=== PATIENT | female | born 1980 | race Caucasian/White ===

== ENCOUNTER 2018-06-18 12:18 | Emergency (ER) | payer BC, OTHER ==
[2018-06-18] MEDS ORDERED: IBUPROFEN 800 MG TABLET PO ONE (13:06)
[2018-06-18 13:25] LABS: APPEARANCE,URINE SLIGHTLY-CLOUDY; BILIRUBIN,URINE NEGATIVE (NEGATIVE); COLOR,URINE AMBER; GLUCOSE, URINE NEGATIVE (NEGATIVE); KETONES,URINE TRACE mg/dL (NEGATIVE); LEUKOCYTE ESTERASE,URINE NEGATIVE (NEGATIVE); NITRITE,URINE NEGATIVE (NEGATIVE); PROTEIN,URINE 30 mg/dL (NEGATIVE); URINE SPECIFIC GRAVITY 1.025; UROBILINOGEN,URINE NEGATIVE mg/dL (<2.0)
[2018-06-18 13:27] LABS: ABSOLUTE LYMPHOCYTES (AUTO) 1.7 10^3/uL (0.5-4.7); ABSOLUTE MONOCYTES (AUTO) 0.9 10^3/uL (0.1-1.4); ABSOLUTE NEUT (AUTO) 2.6 10^3/uL (1.7-8.2); BASOPHILS % (AUTO) 0.5 % (0-2); EOSINOPHILS % (AUTO) 0.3 % (0-6); HEMATOCRIT 43.1 % (36.0-47.0); HEMOGLOBIN 14.8 g/dL (12.0-15.5); LYMPHOCYTES % (AUTO) 32.3 % (13-45); MEAN CORPUSCULAR HEMOGLOBIN 30.4 pg (27.0-33.4); MEAN CORPUSCULAR HGB CONC 34.4 g/dL (32.0-36.0); MEAN CORPUSCULAR VOLUME 89 fl (80-97); MONOCYTES % (AUTO) 16.5 % (3-13); PLATELET COUNT 254 10^3/uL (150-450); RED BLOOD COUNT 4.86 10^6/uL (3.72-5.28); RED CELL DISTRIBUTION WIDTH 12.9 % (11.5-14.0); SEGMENTED NEUTROPHILS % (AUTO) 50.4 % (42-78); TOTAL CELLS COUNTED % (AUTO) 100 %; WHITE BLOOD COUNT 5.2 10^3/uL (4.0-10.5)
[2018-06-18 13:46] LABS: ALANINE AMINOTRANSFERASE 22 U/L (9-52); ALBUMIN 4.4 g/dL (3.5-5.0); ALKALINE PHOSPHATASE 83 U/L (38-126); ANION GAP 10 (5-19); ASPARTATE AMINO TRANSFERASE 20 U/L (14-36); BILIRUBIN,DIRECT 0.3 mg/dL (0.0-0.4); BILIRUBIN,TOTAL 0.3 mg/dL (0.2-1.3); BLOOD UREA NITROGEN 10 mg/dL (7-20); CALCIUM 9.8 mg/dL (8.4-10.2); CARBON DIOXIDE 23 mmol/L (22-30); CHLORIDE 105 mmol/L (98-107); GLUCOSE 78 mg/dL (75-110); TOTAL PROTEIN 7.9 g/dL (6.3-8.2)
--- NOTE | 2018-06-18 13:55 | ER Document Report ---
ED General - General Chief Complaint: Flank Pain Stated Complaint: FLANK PAIN Time Seen by Provider: 06/18/18 12:48 Mode of Arrival: Ambulatory Information source: Patient Notes: Patient presents emergency department with complaints of bilateral flank pain that started on Sunday. She denies other symptoms such as fever vomiting diarrhea. Denies urinary symptoms. Denies vaginal discharge. Reports slight headache and legs are achy. Patient reports that she is not taking any kind of nbhm-vmm-zyrlgbe medications. She also complains of decreased urine output. Reports she has been eating and drinking as normal. TRAVEL OUTSIDE OF THE [place] IN LAST 30 DAYS: No - Related Data Allergies/Adverse Reactions: acetaminophen [From Vicodin] Allergy (Verified 06/18/18 12:27) hydrocodone [From Vicodin] Allergy (Verified 06/18/18 12:27) Past Medical History - General Information source: Patient Last Menstrual Period: Last week - Social History Smoking Status: Current Every Day Smoker Cigarette use (# per day): Yes Frequency of alcohol use: None Drug Abuse: None Family History: None Patient has suicidal ideation: No Patient has homicidal ideation: No - Medical History Medical History: Negative Renal/ Medical History: Denies: Hx Peritoneal Dialysis Past Surgical History: Reports: Hx Cholecystectomy Review of Systems - Review of Systems Notes: Review HPI for review of systems., All other systems negative Physical Exam - Vital signs Vitals: Temp Pulse Resp BP Pulse Ox 98.0 F 112 H 16 125/72 97 06/18/18 12:33 06/18/18 12:33 06/18/18 12:33 06/18/18 12:33 06/18/18 12:33 - Notes Notes: PHYSICAL EXAMINATION: GENERAL: Well-appearing and in no acute distress HEAD: Atraumatic, normocephalic. EYES: Pupils equal extraocular movements intact, sclera anicteric, conjunctiva are normal. ENT: nares patent, Moist mucous membranes. NECK: Normal range of motion, supple without lymphadenopathy LUNGS: CTAB and equal. No wheezes rales or rhonchi. HEART: Regular rate and rhythm without murmurs ABDOMEN: Soft, no tenderness. No guarding, no rebound back: bilateral flank pain EXTREMITIES: Normal range of motion, NEUROLOGICAL: Cranial nerves grossly intact. Normal sensory/motor exams. PSYCH: Normal mood, normal affect. SKIN: Warm, Dry, normal turgor, no rashes or lesions noted Course - Re-evaluation Re-evalutation: 06/18/18 13:52 Labs unremarkable. UA with trace ketones, no hematuria. Negative urine patient will be discharged patient was instructed on all results. Instructed to return to the emergency department for worsening symptoms. She verbalized understanding all instructions. - Vital Signs Vital signs: Temp Pulse Resp BP Pulse Ox 98.0 F 96 16 108/69 98 06/18/18 12:33 06/18/18 13:58 06/18/18 13:58 06/18/18 13:58 06/18/18 13:58 - Laboratory Result Diagrams: 06/18/18 13:15 06/18/18 13:15 Laboratory results interpreted by me: 06/18/18 06/18/18 12:50 13:15 Monocytes % 16.5 H Urine Protein 30 H Urine Ketones TRACE H Urine Ascorbic Acid 40 H Discharge - Discharge Clinical Impression: Bilateral flank pain Condition: Stable Disposition: HOME, SELF-CARE Instructions: Flank Pain ([facility]), Use of Pqpi-Iwa-Xevgtux Ibuprofen ([facility]) Additional Instructions: *You have been evaluated for flank pain *Your labs are unremarkable today *Take ibuprofen as indicated for pain *Follow up with a primary care provider within 5 days for recheck *Return to ED for worsening condition, changes, needs *Return to ED if not better in 24 hours Forms: Elevated Blood Pressure, Return to Work
[2018-06-18 13:59] VITALS: BP 108/69
== END 2018-06-18 13:59 | disposition home or self-care (01) ==
LOC: ER 12:18
DX: R10.9 Unspecified abdominal pain (principal); F17.210 Nicotine dependence, cigarettes, uncomplicated; Z88.6 Allergy status to analgesic agent; Z90.49 Acquired absence of other specified parts of digestive tract
CPT/HCPCS: 36415; 80053; 81001; 81025; 85025; 87086; 87088; 99284

== ENCOUNTER 2018-06-24 19:42 | Emergency (ER) | payer OTHER ==
[2018-06-24] MEDS ORDERED: NORMAL SALINE 1000 ML 1,000 ML IV ONE (21:28)
[2018-06-24] MEDS ORDERED: PROCHLORPERAZINE EDISYLATE INJ 10 MG/2 ML VIAL IV ONE (21:28)
[2018-06-24] MEDS ORDERED: DIPHENHYDRAMINE HCL 50 MG/ML VIAL IV ONE (21:28)
--- NOTE | 2018-06-24 21:33 | ER Document Report ---
ED Medical Screen (RME) - General Chief Complaint: Chest Pain Stated Complaint: CHEST PAIN Time Seen by Provider: 06/24/18 21:14 Mode of Arrival: Ambulatory Information source: Patient Notes: Patient is a 38-year-old female presenting to the emergency department with multiple complaints today. Complaint #1 is chest pain. Patient reports chest pain started earlier today with radiation through to her back as well as numbness and tingling in her left arm. She denies any cardiac history. Reports associated nausea and diaphoresis. Complaint #2 is bilateral low back pain. Patient reports recent diagnosis of hematuria and urinary tract infection. States she is taking Macrobid. States most of her symptoms have resolved other than the bilateral low back pain. Complaint #3 is a headache. Patient reports headache has been intermittent over the last 3 days. States it is located on the left side of her head. Reports that she does not have a history of migraines but has had "normal headaches". Denies any photophobia. Exam: Patient alert, oriented with no acute distress noted. Patient answering all questions appropriately. No CVA tenderness. Patient's family member requesting a CT scan. Explained that I do not have an indication to order a CT scan at this time, I explained that once preliminary test results are back she will see another provider in the back who may order additional testing if necessary. I have greeted and performed a rapid initial assessment of this patient. A comprehensive ED assessment and evaluation of the patient, analysis of test results and completion of the medical decision making process will be conducted by additional ED providers. Dictation of this chart was performed using voice recognition software; therefore, there may be some unintended grammatical errors. TRAVEL OUTSIDE OF THE [place] IN LAST 30 DAYS: No - Related Data Allergies/Adverse Reactions: acetaminophen [From Vicodin] Allergy (Verified 06/18/18 12:27) hydrocodone [From Vicodin] Allergy (Verified 06/18/18 12:27) Past Medical History - Social History Chew tobacco use (# tins/day): No Frequency of alcohol use: None Drug Abuse: None Renal/ Medical History: Denies: Hx Peritoneal Dialysis Past Surgical History: Reports: Hx Cholecystectomy Physical Exam - Vital signs Vitals: Temp Pulse Resp BP Pulse Ox 98.2 F 90 16 127/88 H 99 06/24/18 20:01 06/24/18 20:01 06/24/18 20:01 06/24/18 20:01 06/24/18 20:01 Course - Vital Signs Vital signs: Temp Pulse Resp BP Pulse Ox 98.2 F 90 16 127/88 H 99 06/24/18 20:01 06/24/18 20:01 06/24/18 20:01 06/24/18 20:01 06/24/18 20:01
--- NOTE | 2018-06-24 22:10 | RADIOLOGY REPORT (SQ) ---
EXAM DESCRIPTION: XR CHEST 1 VIEW COMPLETED DATE/TME: 06/24/2018 21:30 CLINICAL HISTORY: 38 years, Female, chest pain COMPARISON: None. NUMBER OF VIEWS: 1 TECHNIQUE: Portable chest LIMITATIONS: None. FINDINGS: Heart size normal. Lungs clear. No pneumothorax IMPRESSION: Negative chest copyright 2011 [employer]- All Rights Reserved
[2018-06-24 23:13] LABS: ABSOLUTE BASOPHILS # (AUTO) 0.1 10^3/uL (0.0-0.2); ABSOLUTE EOSINOPHILS # (AUTO) 0.2 10^3/uL (0.0-0.6); ABSOLUTE LYMPHOCYTES (AUTO) 4.1 10^3/uL (0.5-4.7); ABSOLUTE MONOCYTES (AUTO) 0.9 10^3/uL (0.1-1.4); ABSOLUTE NEUT (AUTO) 6.9 10^3/uL (1.7-8.2); EOSINOPHILS % (AUTO) 1.8 % (0-6); HEMATOCRIT 42.1 % (36.0-47.0); HEMOGLOBIN 14.4 g/dL (12.0-15.5); LYMPHOCYTES % (AUTO) 33.8 % (13-45); MEAN CORPUSCULAR HEMOGLOBIN 30.5 pg (27.0-33.4); MEAN CORPUSCULAR HGB CONC 34.3 g/dL (32.0-36.0); MEAN CORPUSCULAR VOLUME 89 fl (80-97); MONOCYTES % (AUTO) 7.2 % (3-13); PLATELET COUNT 301 10^3/uL (150-450); RED BLOOD COUNT 4.72 10^6/uL (3.72-5.28); RED CELL DISTRIBUTION WIDTH 12.8 % (11.5-14.0); SEGMENTED NEUTROPHILS % (AUTO) 56.2 % (42-78); TOTAL CELLS COUNTED % (AUTO) 100 %; WHITE BLOOD COUNT 12.2 10^3/uL (4.0-10.5)
[2018-06-24 23:16] LABS: APPEARANCE,URINE CLEAR; BILIRUBIN,URINE NEGATIVE (NEGATIVE); COLOR,URINE STRAW; GLUCOSE, URINE NEGATIVE (NEGATIVE); KETONES,URINE NEGATIVE (NEGATIVE); LEUKOCYTE ESTERASE,URINE NEGATIVE (NEGATIVE); NITRITE,URINE NEGATIVE (NEGATIVE); PROTEIN,URINE NEGATIVE (NEGATIVE); URINE SPECIFIC GRAVITY 1.004; UROBILINOGEN,URINE NEGATIVE mg/dL (<2.0)
[2018-06-24 23:32] LABS: ALANINE AMINOTRANSFERASE 34 U/L (9-52); ALBUMIN 4.5 g/dL (3.5-5.0); ALKALINE PHOSPHATASE 76 U/L (38-126); ANION GAP 13 (5-19); ASPARTATE AMINO TRANSFERASE 41 U/L (14-36); BILIRUBIN,DIRECT 0.4 mg/dL (0.0-0.4); BILIRUBIN,TOTAL 0.4 mg/dL (0.2-1.3); BLOOD UREA NITROGEN 10 mg/dL (7-20); CALCIUM 9.6 mg/dL (8.4-10.2); CARBON DIOXIDE 27 mmol/L (22-30); CHLORIDE 99 mmol/L (98-107); GLUCOSE 81 mg/dL (75-110); POTASSIUM 3.9 mmol/L (3.6-5.0); SODIUM 138.7 mmol/L (137-145); TOTAL PROTEIN 8.5 g/dL (6.3-8.2)
--- NOTE | 2018-06-25 00:23 | RADIOLOGY REPORT (SQ) ---
EXAM DESCRIPTION: CT HEAD WITHOUT IV CONTRAST COMPLETED DATE/TME: 06/24/2018 23:32 CLINICAL HISTORY: recurring headaches COMPARISON: None available TECHNIQUE: Axial CT of the head obtained from the skull apex to the skull base without contrast. FINDINGS: No acute intracranial hemorrhage identified. No mass, mass effect, shift of the midline, abnormal extra-axial fluid collection or CT evidence of acute ischemic change identified. The ventricular system is unremarkable. No acute abnormalities of the supratentorial white matter, basal ganglia, cerebellum, or brainstem. The visualized paranasal sinuses and the mastoids are clear. No skull fracture identified. Visualized orbits and globes are unremarkable. DLP:1070.3 mGy-cm IMPRESSION: 1. No acute intracranial abnormality identified. This exam was performed according to our departmental dose-optimization program, which includes automated exposure control, adjustment of the mA and/or kV according to patient size and/or use of iterative reconstruction technique.
[2018-06-25 01:38] LABS: FREE T4 (FREE THYROXINE) 1.51 ng/dL (0.78-2.19)
--- NOTE | 2018-06-25 01:51 | ER Document Report ---
ED General - General Chief Complaint: Chest Pain Stated Complaint: CHEST PAIN Time Seen by Provider: 06/24/18 21:14 Primary Care Provider: DARRELL CORDOVA MD [NO LOCAL MD] - Follow up in 3-5 days (call office to make an appointment) Mode of Arrival: Ambulatory Notes: Patient is a 38-year-old female who presents with complaint of a few different things. Patient says that she was having some pain in her lower back a few weeks ago. She was seen here. Urinalysis was negative. She never had dysuria. She then went to [facility] and they did a urinalysis which showed blood and protein and therefore they placed her on Macrobid and tramadol. Patient says she still has some tenderness in her back this mostly in the left side. Initially it was bilaterally. She again denies any abdominal pain or dysuria. No abnormal vaginal bleeding or discharge. Patient says during this time she is also had intermittent headache. So the headache does come and go over the last few weeks. Says is always on the left side and behind the left eye. No associated blurred vision. Today was worse than usual and therefore she came to the ER. Headache is gradual in onset not maximal onset. No focal weakness or numbness into the extremities. She said when she started having headache again she started to feel some chest pain he felt a little short of breath. That has since resolved. She denies history of coronary disease. She denies history of hypertension. She denies recent fevers or illness. She has no other complaints at this time. TRAVEL OUTSIDE OF THE [place] IN LAST 30 DAYS: No - Related Data Allergies/Adverse Reactions: acetaminophen [From Vicodin] Allergy (Verified 06/18/18 12:27) hydrocodone [From Vicodin] Allergy (Verified 06/18/18 12:27) Past Medical History - General Information source: Patient - Social History Smoking Status: Current Every Day Smoker Chew tobacco use (# tins/day): No Frequency of alcohol use: None Drug Abuse: None Family History: None Patient has suicidal ideation: No Patient has homicidal ideation: No Renal/ Medical History: Denies: Hx Peritoneal Dialysis Past Surgical History: Reports: Hx Cholecystectomy Review of Systems - Review of Systems Notes: My Normal Review Basic REVIEW OF SYSTEMS: CONSTITUTIONAL : Denies fever, chills, or sweats. Denies recent illness. EENT: Denies eye, ear, throat, or mouth pain or symptoms. Denies nasal or sinus congestion. CARDIOVASCULAR: Previous chest pain which has since resolved. RESPIRATORY: Denies cough, cold, or chest congestion. Denies shortness of breath, difficulty breathing, or wheezing. GASTROINTESTINAL: Denies abdominal pain. Denies nausea, vomiting, or diarrhea. Denies constipation. Last BM: GENITOURINARY: Denies difficulty urinating, painful urination, burning, frequency, or blood in urine. FEMALE GENITOURINARY: Denies vaginal bleeding, abnormal or irregular periods. LMP: MUSCULOSKELETAL: Some lower back pain SKIN: Denies rash or skin lesions. NEUROLOGICAL: Denies altered mental status or loss of consciousness. Has a headache. Denies weakness or paralysis or loss of use of either side. Denies problems with gait or speech. Denies sensory or motor loss. PSYCHIATRIC: Mild anxiety ALL OTHER SYSTEMS REVIEWED AND NEGATIVE. Physical Exam - Vital signs Vitals: Temp Pulse Resp BP Pulse Ox 98.2 F 90 16 127/88 H 99 06/24/18 20:01 06/24/18 20:01 06/24/18 20:01 06/24/18 20:01 06/24/18 20:01 - Notes Notes: General Appearance: Well nourished, alert, cooperative, no acute distress, mild obvious discomfort. well-appearing Vitals: reviewed, See vital signs table. Head: no swelling or tenderness to the head Eyes: PERRL, EOMI, Conjuctiva clear Mouth: No decreasd moisture Neck: Supple, no neck tenderness, No thyromegaly. Slightly enlarged lymph nodes over the left posterior cervical chain. There is no redness over the area. No surrounding swelling. Lungs: No wheezing, No rales, No rhonci, No accessory muscle use, good air exchange bilaterally. Heart: Normal rate, Regular rythm, No murmur, no rub Back: No significant reproduction of pain to palpation of lower back. No redness or swelling to the back. Abdomen: Normal BS, soft, No rigidity, No abdominal tenderness, No guarding, no rebound, no abdominal masses, no organomegaly Extremities: strength 5/5 in all extremities, good pulses in all extremities, no swelling or tenderness in the extremities, no edema. Skin: warm, dry, appropriate color, no rash Neuro: speech clear, oriented x 3, normal affect, responds appropriately to questions. Cranial nerves II through XII are intact. Distal sensation intact. Patient moves all extremities without difficulty. Course - Re-evaluation Re-evalutation: 06/25/18 02:07 Patient's blood work is unremarkable. Her urinalysis shows no evidence of infection protein or blood. I therefore informed her that she can stop taking the antibiotic that was prescribed to her. Her headache is improved with the Reglan. Her headache is unilateral and gradual onset and very intermittent. This is consistent with cluster type headaches. I did obtain a CT scan because these have been new in the last couple weeks. CT scan does not show any evidence of obvious mass or tumor. She has no neurologic deficits otherwise. I will refer to neurology for a close follow-up regards to further workup of her headaches. Patient had chest pain which sounds to be normal stress induced. Since starting chest pain after she was having headaches and she felt anxious. She does not have many significant risk factors for coronary disease. Heart score is 2. Her troponin and EKG are negative. I think she is appropriate for outpatient follow-up with her doctor for reevaluation and potential outpatient stress testing. I did explain this to her and she is agreeable to it. I informed her that I do not know why she keeps having this recurrent low back pain. It could be musculoskeletal however I cannot completely blamed on that being that she does not have a lot of reproducible pain to palpation. She thinks this is related to her kidneys however her kidney function and urinalysis are completely normal. Encouraged her to follow-up closely with her primary care doctor in regards to this for reevaluation. Encouraged her return to ER if she has worsening pains, fevers, recurrent chest pain, difficulty breathing, severe sudden onset headache, or she feels unwell. Patient agrees with plan will be discharged home. Dictation of this chart was performed using voice recognition software; therefore, there may be some unintended grammatical errors. - Vital Signs Vital signs: Temp Pulse Resp BP Pulse Ox 98.2 F 90 16 127/88 H 99 06/24/18 20:01 06/24/18 20:01 06/24/18 20:01 06/24/18 20:01 06/24/18 20:01 - Laboratory Result Diagrams: 06/24/18 22:40 06/24/18 22:40 Laboratory results interpreted by me: 06/24/18 06/24/18 22:40 22:40 WBC 12.2 H AST 41 H Total Protein 8.5 H Discharge - Discharge Clinical Impression: Headache Qualifiers: Headache type: unspecified Headache chronicity pattern: episodic headache Intractability: not intractable Qualified Code(s): R51 - Headache Chest pain Qualifiers: Chest pain type: unspecified Qualified Code(s): R07.9 - Chest pain, unspecified Back pain Qualifiers: Back pain location: low back pain Chronicity: unspecified Back pain laterality: left Sciatica presence: without sciatica Qualified Code(s): M54.5 - Low back pain Condition: Good Disposition: HOME, SELF-CARE Additional Instructions: I do not know the exact cause behind your recurrent headaches or your low back pain. Currently everything looking at your kidney function is normal. Urinalysis does not show any evidence of infection or blood or protein in your urine. You therefore can stop the antibiotic that was previously prescribed to you. Your blood work does not show any concerning findings. You have a unilateral headache. These are usually caused by migraines and sometimes something called a cluster migraine. I will prescribe a medication called Reglan to take whenever he starts to have these headaches as this may help. We will refer you to the neurologist, Dr. Cordova. Please call his office to make a close follow-up appointment for further investigation to your headaches. In regards to your chest pain, your EKG and heart enzymes were normal. Please follow-up with your doctor this week for reevaluation and you can discuss with him further testing such as outpatient stress testing. Please have a low threshold to return to the ER immediately if you have severe chest pain, difficulty breathing, headaches not responding to Reglan, fevers, or if you feel that you are worsening in any way. Prescriptions: Metoclopramide HCl [Reglan 10 mg Tablet] 1 tab PO ASDIR PRN #25 tablet PRN Reason: Forms: Return to Work Referrals: DARRELL CORDOVA MD [NO LOCAL MD] - Follow up in 3-5 days (call office to make an appointment)
[2018-06-25 01:52] LABS: THYROID STIMULATING HORMONE 2.47 uIU/mL (0.47-4.68)
[2018-06-25 02:31] VITALS: BP 108/59
--- NOTE | 2018-06-25 10:15 | EKG REPORT ---
SEVERITY:- NORMAL ECG - SINUS RHYTHM : Confirmed by: Sussy Delacruz MD 25-Jun-2018 10:14:15
== END 2018-06-25 02:31 | disposition home or self-care (01) ==
LOC: ER 19:42
DX: R07.9 Chest pain, unspecified (principal); M54.5 Low back pain; R51 Headache; F17.200 Nicotine dependence, unspecified, uncomplicated
CPT/HCPCS: 93005; 99284; 96361; 96374; 96375; 36415; 87086; 84439; 84443; 85025; 87088; 80053; 81001; 84484; 71045; 70450; 93010; J1200; J0780; J7030

== ENCOUNTER 2019-03-08 15:05 | Emergency (ER) | payer OTHER ==
--- NOTE | 2019-03-08 15:48 | ER Document Report ---
ED Medical Screen (RME) - General Chief Complaint: Chest Pain Stated Complaint: CHEST PAIN/RIB PAIN/FLANK PAIN Time Seen by Provider: 03/08/19 15:42 Mode of Arrival: Ambulatory Information source: Patient Notes: Patient presents emergency department with complaints of cold symptoms cough [facility] and antibiotics since December 19. She reports for the last month and a half she has had a cough. She woke up this morning with midsternal chest pain rib pain and also complains of bilateral flank pain. Denies fever vomiting diarrhea but reports some nausea now. Denies family history of cardiac disease. Denies history of cardiac disease for self. I have greeted and performed a rapid initial assessment of this patient. A comprehensive ED assessment and evaluation of the patient, analysis of test results and completion of the medical decision making process will be conducted by additional ED providers. TRAVEL OUTSIDE OF THE [place] IN LAST 30 DAYS: No - Related Data Allergies/Adverse Reactions: acetaminophen [From Vicodin] Allergy (Verified 06/18/18 12:27) hydrocodone [From Vicodin] Allergy (Verified 06/18/18 12:27) Past Medical History Renal/ Medical History: Denies: Hx Peritoneal Dialysis Past Surgical History: Reports: Hx Cholecystectomy Physical Exam - Vital signs Vitals: Temp Pulse Resp BP Pulse Ox 98.2 F 103 H 12 125/84 97 03/08/19 15:32 03/08/19 15:32 03/08/19 15:32 03/08/19 15:32 03/08/19 15:32 Course - Vital Signs Vital signs: Temp Pulse Resp BP Pulse Ox 98.2 F 103 H 12 125/84 97 03/08/19 15:32 03/08/19 15:32 03/08/19 15:32 03/08/19 15:32 03/08/19 15:32
--- NOTE | 2019-03-08 17:01 | RADIOLOGY REPORT (SQ) ---
EXAM DESCRIPTION: CHEST 2 VIEWS COMPLETED DATE/TIME: 03/08/2019 4:49 pm REASON FOR STUDY: cp COMPARISON: Chest radiographs 06/24/2018 EXAM PARAMETERS: NUMBER OF VIEWS: two views TECHNIQUE: Digital Frontal and Lateral radiographic views of the chest acquired. RADIATION DOSE: NA LIMITATIONS: none FINDINGS: LUNGS AND PLEURA: No opacities, masses or pneumothorax. No pleural effusion. MEDIASTINUM AND HILAR STRUCTURES: No masses or contour abnormalities. HEART AND VASCULAR STRUCTURES: Heart normal size. No evidence for failure. BONES: No acute findings. HARDWARE: Right upper abdominal surgical clips. OTHER: No other significant finding. IMPRESSION: NO ACUTE RADIOGRAPHIC FINDING IN THE CHEST. TECHNICAL DOCUMENTATION: JOB ID: [id number] [email or web address]- All Rights Reserved Reading location - IP/workstation name: [email or web address]
[2019-03-08 17:06] LABS: APPEARANCE,URINE CLEAR; BILIRUBIN,URINE NEGATIVE (NEGATIVE); COLOR,URINE YELLOW; GLUCOSE, URINE NEGATIVE (NEGATIVE); KETONES,URINE NEGATIVE (NEGATIVE); LEUKOCYTE ESTERASE,URINE NEGATIVE (NEGATIVE); NITRITE,URINE NEGATIVE (NEGATIVE); PROTEIN,URINE NEGATIVE (NEGATIVE); URINE SPECIFIC GRAVITY 1.008; UROBILINOGEN,URINE NEGATIVE mg/dL (<2.0)
[2019-03-08 17:09] LABS: ABSOLUTE BASOPHILS # (AUTO) 0.2 10^3/uL (0.0-0.2); ABSOLUTE EOSINOPHILS # (AUTO) 0.3 10^3/uL (0.0-0.6); ABSOLUTE LYMPHOCYTES (AUTO) 3.5 10^3/uL (0.5-4.7); ABSOLUTE MONOCYTES (AUTO) 1.1 10^3/uL (0.1-1.4); ABSOLUTE NEUT (AUTO) 8.9 10^3/uL (1.7-8.2); BASOPHILS % (AUTO) 1.1 % (0-2); EOSINOPHILS % (AUTO) 1.9 % (0-6); HEMATOCRIT 43.4 % (36.0-47.0); HEMOGLOBIN 14.8 g/dL (12.0-15.5); LYMPHOCYTES % (AUTO) 25.4 % (13-45); MEAN CORPUSCULAR HEMOGLOBIN 30.1 pg (27.0-33.4); MEAN CORPUSCULAR VOLUME 88 fl (80-97); MONOCYTES % (AUTO) 7.8 % (3-13); PLATELET COUNT 335 10^3/uL (150-450); RED BLOOD COUNT 4.91 10^6/uL (3.72-5.28); RED CELL DISTRIBUTION WIDTH 13.3 % (11.5-14.0); SEGMENTED NEUTROPHILS % (AUTO) 63.8 % (42-78); TOTAL CELLS COUNTED % (AUTO) 100 %; WHITE BLOOD COUNT 13.9 10^3/uL (4.0-10.5)
[2019-03-08 17:18] LABS: ALBUMIN 4.6 g/dL (3.5-5.0); ALKALINE PHOSPHATASE 82 U/L (38-126); ANION GAP 13 (5-19); ASPARTATE AMINO TRANSFERASE 28 U/L (14-36); BILIRUBIN,DIRECT 0.2 mg/dL (0.0-0.4); BILIRUBIN,TOTAL 0.4 mg/dL (0.2-1.3); BLOOD UREA NITROGEN 8 mg/dL (7-20); CALCIUM 9.8 mg/dL (8.4-10.2); CARBON DIOXIDE 23 mmol/L (22-30); CHLORIDE 103 mmol/L (98-107); GLUCOSE 79 mg/dL (75-110); POTASSIUM 4.1 mmol/L (3.6-5.0); TOTAL PROTEIN 8.1 g/dL (6.3-8.2)
--- NOTE | 2019-03-08 18:05 | ER Document Report ---
Entered by MAREK BERRIOS SCRIBE 03/08/19 1716 Acting as scribe for:EKLIN BOLDEN IV, MD ED General - General Chief Complaint: Chest Pain Stated Complaint: CHEST PAIN/RIB PAIN/FLANK PAIN Time Seen by Provider: 03/08/19 15:42 Mode of Arrival: Ambulatory Information source: Patient Notes: This 39 year old female patient presents to the ED today with complaints of reproducible chest pain that began yesterday morning. Patient also reports pain in her kidneys and under her bilateral ribs with radiation to her back. Patient describes the pain as "sharp, shooting pain on her sternum" that is intermittent. Patient notes an intermittent "shuttery feeling" when she takes a breath. Patient states that she has had a persistent cough since December 19 and was prescribed steroids, a course of antibiotics, and tessalon perles without any improvement. Patient notes that her cough has abated this past week and now comes in "spurts". Patient denies fevers, chills, vomiting, or diarrhea, but reports feeling nauseous this morning. TRAVEL OUTSIDE OF THE [place] IN LAST 30 DAYS: No - Related Data Allergies/Adverse Reactions: acetaminophen [From Vicodin] Allergy (Verified 06/18/18 12:27) hydrocodone [From Vicodin] Allergy (Verified 06/18/18 12:27) Past Medical History - General Information source: Patient - Social History Smoking Status: Current Every Day Smoker Cigarette use (# per day): Yes - 0.5 ppd Chew tobacco use (# tins/day): No Smoking Education Provided: No Frequency of alcohol use: Rare Drug Abuse: None Family History: Reviewed & Not Pertinent Patient has suicidal ideation: No Patient has homicidal ideation: No Past Surgical History: Reports: Hx Cholecystectomy Review of Systems - Review of Systems Constitutional: See HPI. denies: Fever EENT: No symptoms reported Cardiovascular: See HPI, Chest pain Respiratory: See HPI, Cough Gastrointestinal: See HPI, Nausea. denies: Diarrhea, Vomiting Genitourinary: See HPI, Flank pain Female Genitourinary: No symptoms reported Musculoskeletal: No symptoms reported, Back pain Skin: No symptoms reported Hematologic/Lymphatic: No symptoms reported Neurological/Psychological: No symptoms reported -: Yes All other systems reviewed and negative Physical Exam - Vital signs Vitals: Temp Pulse Resp BP Pulse Ox 98.2 F 103 H 12 125/84 97 03/08/19 15:32 03/08/19 15:32 03/08/19 15:32 03/08/19 15:32 03/08/19 15:32 Interpretation: Tachycardic - General General appearance: Appears well, Alert In distress: None - HEENT Head: Normocephalic, Atraumatic Eyes: Normal Pupils: PERRL - Respiratory Respiratory status: No respiratory distress Chest status: Nontender Breath sounds: Normal Chest palpation: Normal - Cardiovascular Rhythm: Regular Heart sounds: Normal auscultation Murmur: No - Abdominal Inspection: Normal Distension: No distension Bowel sounds: Normal Tenderness: Nontender - Abdomen soft Organomegaly: No organomegaly - Back Back: Normal, Nontender. No: CVA tenderness - Extremities General upper extremity: Normal inspection General lower extremity: Normal inspection - Neurological Neuro grossly intact: Yes - Psychological Associated symptoms: Normal affect, Normal mood - Skin Skin Temperature: Warm Skin Moisture: Dry Skin Color: Normal Course - Re-evaluation Re-evalutation: 03/08/19 18:50 All results of ED MSE discussed with patient. All questions were answered prior to discharge. Informed patient that there is no clear etiology at this time for her presenting symptoms. Recommend to the patient that she reestablish care with a primary care physician. - Vital Signs Vital signs: Temp Pulse Resp BP Pulse Ox 98.2 F 103 H 12 125/84 97 03/08/19 15:32 03/08/19 15:32 03/08/19 15:32 03/08/19 15:32 03/08/19 15:32 - Laboratory Result Diagrams: 03/08/19 16:42 03/08/19 16:42 Laboratory results interpreted by me: 03/08/19 03/08/19 16:42 16:42 WBC 13.9 H Absolute Neuts (auto) 8.9 H Urine Blood SMALL H - EKG Interpretation by Me Additional EKG results interpreted by me: 03/08/19 17:22 EKG obtained on 03/08/2019 at 1512 hrs. was interpreted by this MD. Findings: Sinus tachycardia, rate 101, normal axis, P waves preceding QRS complexes, QRS complexes appear narrow, there are no obvious patterns of ST elevation or depression to suggest acute myocardial ischemia or infarction. Impression sinus tachycardia with nonspecific ST segments. Discharge - Discharge Clinical Impression: Musculoskeletal pain Condition: Good Disposition: HOME, SELF-CARE Additional Instructions: Return to the Emergency Department without delay if any worse. HOME CARE INSTRUCTIONS & INFORMATION: Thank you for choosing us for your medical needs. We hope you're satisfied with the care you received. After you leave, you must properly care for your problem and, at the same time, observe its progress. Any condition can change. Some illnesses can change rapidly over hours or days. If your condition worsens, return to the Emergency Department or see your physician promptly. ABOUT YOUR X-RAYS AND EKG'S: If you had an EKG or X-rays taken, they have been read by the Emergency Physician. The X-rays and EKG's will also be read by a Radiologist or Adult School Counselor within 24 hours. If discrepancies are noted, you will be notified by telephone. Please be certain the ED has a correct telephone number & address where you can be reached. Also, realize that some fractures or abnormalities do not show up on initial X-rays. If your symptoms continue, see your physician. ABOUT YOUR LABORATORY TEST: If you had laboratory tests, the results have been reviewed by the Emergency Physician. Some test results (for example cultures) may not be available for several days. You will be contacted if any test result shows you need additional treatment. Please be certain the ED has a correct telephone number and address where you can be reached. ABOUT YOUR MEDICATIONS: You will receive instructions on how to take your medicine on the prescription label you receive. Additional information may be provided by the Pharmacy. If you have questions afterwards, call the ED for clarification or further instructions. Some prescribed medications may cause drowsiness. Do not perform tasks such as driving a car or operating machinery without consulting your Pharmacist. If you feel you need a refill of pain medication, your condition will need re-evaluation. Please do not call for a refill of any medication. ABOUT YOUR SIGNATURE: Signature of this document acknowledges to followin. Understanding that you received emergency treatment and that you may be released before al medical problems are known or treated. Please be certain the ED has a correct phone number & address where you can be reached. 2. Acknowledgement that you will arrange for follow-up care as recommended. 3. Authorization for the Emergency Physician to provide information to your follow-up Physician in order to maximize your care. AT ANY TIME, IF YOUR SYMPTOMS CHANGE SIGNIFICANTLY OR WORSEN OR YOU DEVELOP NEW SYMPTOMS, RETURN TO THE EMERGENCY DEPARTMENT IMMEDIATELY FOR RE-EVALUATION. OUR GOAL IS TO PROVIDE EXCELLENT MEDICAL CARE! WE HOPE THAT WE HAVE MET YOUR EXPECTATIONS DURING YOUR EMERGENCY DEPARTMENT VISIT AND THAT YOU FEEL YOU HAVE RECEIVED EXCELLENT CARE! Forms: Return to Work I personally performed the services described in the documentation, reviewed and edited the documentation which was dictated to the scribe in my presence, and it accurately records my words and actions.
[2019-03-08 19:19] VITALS: BP 124/78
--- NOTE | 2019-03-08 22:53 | EKG REPORT ---
SEVERITY:- OTHERWISE NORMAL ECG - SINUS TACHYCARDIA : Confirmed by: Sussy Delacruz MD 08-Mar-2019 22:53:15
== END 2019-03-08 19:18 | disposition home or self-care (01) ==
LOC: ER 15:05
DX: M79.10 Myalgia, unspecified site (principal); R07.9 Chest pain, unspecified; R07.81 Pleurodynia; M54.9 Dorsalgia, unspecified; N23 Unspecified renal colic; R11.0 Nausea; R00.0 Tachycardia, unspecified; F17.210 Nicotine dependence, cigarettes, uncomplicated
CPT/HCPCS: 36415; 71046; 80053; 81001; 81025; 82550; 84484; 85025; 86308; 93005; 93010; 99284